=== PATIENT | male | born 1955 | race Two or more races ===

== ENCOUNTER 2024-05-04 02:26 | Emergency (ER) | payer OTHER ==
[~2024-05-04] VITALS: Ht 177.8 cm; Wt 77.1 kg
[2024-05-04] MEDS: IV NS 0.9% 500 ML BAG IV ONE (02:58)
[2024-05-04 03:05] LABS: BASOPHILS % (AUTO) 0.3 % (0.0-2.0); EOSINOPHILS # (AUTO) 0.1 K/uL (0.0-0.7); HEMATOCRIT 25 % (39-51); HEMOGLOBIN 7.8 g/dL (13.5-17.5); LYMPHOCYTES # (AUTO) 0.6 K/uL (0.8-4.8); LYMPHOCYTES % (AUTO) 5.9 % (20.0-44.0); MEAN CORPUSCULAR HEMOGLOBIN 24 PG (26.0-33.0); MEAN CORPUSCULAR HGB CONC 32 g/dl (31.0-36.0); MEAN CORPUSCULAR VOLUME 76 fL (80-96); MONOCYTES # (AUTO) 0.4 K/uL (0.1-1.30); MONOCYTES % (AUTO) 3.8 % (2.0-12.0); NEUTROPHILS # (AUTO) 8.4 K/uL (1.8-8.9); PLATELET COUNT (AUTO) 189 K/uL (150-450); RED BLOOD CELL COUNT(AUTO) 3.22 MIL/uL (4.5-6.0); RED CELL DISTRIBUTION WIDTH 18.9 % (11.5-15.0); WHITE BLOOD COUNT (AUTO) 9.5 K/uL (4.3-11.0)
[2024-05-04] MEDS ORDERED: PIPERACI/TAZO 3.375GM/D5W 50ML PB IV ONE (03:08)
[2024-05-04] MEDS: PIPERACILLIN /TAZOBACTAM 3.375 G in IV D5W 50 ML IV ONE (03:16)
[2024-05-04 03:18] LABS: CALCIUM, SERUM 8.5 mg/dL (8.5-10.1); CARBON DIOXIDE 33 mmol/L (21-32); CHLORIDE 101 mmol/L (98-107); CREATININE 1.2 mg/dL (0.6-1.3); GLUCOSE 114 mg/dL (74-106); POTASSIUM 4.8 mmol/L (3.5-5.1); SODIUM SERUM 137 mmol/L (136-145); UREA NITROGEN, BLOOD 28 mg/dL (7-18)
[2024-05-04 03:22] LABS: LACTIC ACID 1.5 mmol/L (0.4-2.0)
[2024-05-04 03:23] LABS: INR 1.52 (0.91-1.10); PARTIAL THROMBOPLASTIN TIME 33.2 SEC (24.3-34.3); PROTHROMBIN TIME 15.7 SECS (9.2-11.1)
[2024-05-04 03:24] LABS: ALANINE AMINOTRANSFERASE 40 U/L (12-78); ALKALINE PHOSPHATASE 71 U/L (46-116); ASPARTATE AMINOTRANSFERASE 42 U/L (15-37); BILIRUBIN,DIRECT 0.2 mg/dL (0.0-0.2); BILIRUBIN,TOTAL 0.5 mg/dL (0.2-1.0); TOTAL PROTEIN, SERUM 6.1 g/dL (6.4-8.2)
[2024-05-04] MEDS ORDERED: VANCOMYCIN 1 GM /D5W 250 ML PB IV ONE (03:32)
[2024-05-04 03:34] LABS: APPEARANCE,URINE CLEAR (CLEAR); BILIRUBIN,URINE NEGATIVE (NEGATIVE); BLOOD, URINE NEGATIVE Ery/uL (NEGATIVE); COLOR,URINE YELLOW (YELLOW); KETONES,URINE NEGATIVE (NEGATIVE); LEUKOCYTE ESTERASE ,URINE NEGATIVE (NEGATIVE); NITRITE, URINE NEGATIVE (NEGATIVE); PH,URINE 8.5 (5.0-8.0); PROTEIN,URINE 1+ mg/dl (NEGATIVE); UGLUCOSE NEGATIVE (NEGATIVE)
[2024-05-04] MEDS: VANCOMYCIN 1 GM in IV D5W 250 ML IV ONE (03:53)
[2024-05-04 04:12] LABS: ADD URINE CULTURE NO; BACTERIA,URINE None seen /HPF (None Seen); MUCUS,URINE Moderate /LPF (None Seen); RBC,URINE NONE SEEN /HPF (0-2); SQUAMOUS EPITHELIAL CELL,UR None Seen /HPF (None Seen); WBC,URINE NONE SEEN /HPF (0-3)
[2024-05-04 09:30] VITALS: BP 128/71; TEMP 98.6; O2SAT 95
== END 2024-05-04 10:56 | disposition short-term general hospital (02) ==
LOC: ER 02:28 → EDBD 02:28 → ER 10:56
DX: A41.9 Sepsis, unspecified organism (principal); R65.21 Severe sepsis with septic shock; R09.02 Hypoxemia; D64.9 Anemia, unspecified; E11.9 Type 2 diabetes mellitus without complications; E78.5 Hyperlipidemia, unspecified; I69.391 Dysphagia following cerebral infarction; J18.9 Pneumonia, unspecified organism; Z79.01 Long term (current) use of anticoagulants; Z93.1 Gastrostomy status; Z20.822 Contact with and (suspected) exposure to COVID-19
CPT/HCPCS: 99291; 96365; 71045; 96367; 87426; 93005; 87804 ×2; 84145; 85025; 80048; 87040; 87086; 83605; 80076; 81001; 36415; 84484; 85730; 83880; J3370 ×2; J2543 ×2; J7060; A4223